=== PATIENT | female | born 1980 | race Two or more races ===

== ENCOUNTER → 2023-10-17 | Day surgery (SDC) | payer OTHER | END | disposition home or self-care (01) | LOC: JRADUS-SUR 10:44 | PROVIDERS: ATTEND Nurse Practitioner Family | PROC: 0H9V3ZX Drainage of Bilateral Breast, Percutaneous Approach, Diagnostic (ICD-10-PCS; principal; 2023-10-17) | DX: C50.912 Malignant neoplasm of unspecified site of left female breast (principal) | CPT/HCPCS: 19083; 19084; 77065-TC; 87899; 88305-TC; 88342-TC; A4648 ==

== ENCOUNTER → 2025-02-04 | Day surgery (SDC) | payer OTHER | END | disposition home or self-care (01) | LOC: JRADUS-SUR 13:34 | PROVIDERS: ATTEND Registered Nurse | PROC: 0X953ZX Drainage of Left Axilla, Percutaneous Approach, Diagnostic (ICD-10-PCS; principal; 2025-02-04) | DX: L02.412 Cutaneous abscess of left axilla (principal) | CPT/HCPCS: 19000; 76942-TC; 87899; 88108; 88305-TC; 88341-TC; 88342-TC; A4648 ==